=== PATIENT | female | born 1965 | race Caucasian/White ===

== ENCOUNTER 2018-03-30 15:26 | Emergency (ER) | payer BC ==
[2018-03-30 15:59] VITALS: BP 131/77
[2018-03-30] MEDS ORDERED: Dexamethasone TAB* 4 MG PO ONE (16:22)
--- NOTE | 2018-03-30 16:28 | UC ---
General HPI - HPI Summary HPI Summary: Patient states that on Saturday, 2 nights ago, she fell forward with outstretched arms landing on her carpeted stairs. She states that she was fine right after. She states that she went to bed. A short time later upon waking (a couple of hours later) she noted soreness to her upper back and was experiencing pain in her left arm. She describes the pain in her arm as a sensation like she had struck her funny bone. She states that she did not hit her head nor does she have any pain in her spine. She denies any weakness to her arms or legs. She denies any other injuries and offers no other complaints. She's been self treating with some Advil without relief. - History of Current Complaint Chief Complaint: UCBackPain Stated Complaint: BACK INJURY S/P FALL Time Seen by Provider: 03/30/18 16:06 Hx Obtained From: Patient Hx Last Menstrual Period: 03/17/18 Timing: Constant Pain Intensity: 4 Aggravating: looking down aggravates the mm on side on neck. Alleviating: nothing Associated Signs & Symptoms: Positive: Back Pain. Negative: Headache - Allergy/Home Medications Allergies/Adverse Reactions: Allergies Allergy/AdvReac Type Severity Reaction Status Date / Time codeine Allergy Rash Verified 03/30/18 15:59 Home Medications: Home Medications B/C 1 tab PO DAILY 03/30/18 [History Confirmed 03/30/18] Cranberry Conc/C/Bacill Coag [Cranberry Tablet] 1 each PO DAILY 03/30/18 [ History Confirmed 03/30/18] Escitalopram Oxalate [Lexapro 20 mg] 20 mg PO DAILY 03/30/18 [History Confirmed 03/30/18] Multivit-Min/Iron Fum/Folic AC [Multi Vitamin and Mineral] 1 tab PO DAILY [History Confirmed 03/30/18] Omeprazole CAP* [Prilosec CAP* 20 MG] 20 mg PO DAILY 03/30/18 [History Confirmed 03/30/18] PMH/Surg Hx/FS Hx/Imm Hx GI/ History: Gastroesophageal Reflux Psychological History: Anxiety - Surgical History Surgical History: Yes Surgery Procedure, Year, and Place: , gallbladder - Family History Known Family History: Positive: None - Social History Occupation: Employed Full-time Lives: With Family Alcohol Use: None Substance Use Type: None Smoking Status (MU): Never Smoked Tobacco - Immunization History Vaccination Up to Date: Yes Review of Systems Constitutional: Negative Skin: Negative Eyes: Negative ENT: Negative Respiratory: Negative Cardiovascular: Negative Gastrointestinal: Negative Genitourinary: Negative Motor: Negative Neurovascular: Negative Musculoskeletal: Other: - soreness upper back Neurological: Paresthesia - left arm Psychological: Negative Is Patient Immunocompromised?: No All Other Systems Reviewed And Are Negative: Yes Physical Exam Triage Information Reviewed: Yes Appearance: Well-Appearing Vital Signs: Initial Vital Signs Temp 98.2 F 03/30/18 15:51 Pulse 105 03/30/18 15:51 Resp 16 03/30/18 15:51 BP 131/77 03/30/18 15:51 Pulse Ox 97 03/30/18 15:51 Vital Signs Reviewed: Yes Eyes: Positive: Conjunctiva Clear, Other: - PERRL, EOMI. ENT: Positive: Pharynx normal, TMs normal. Negative: Nasal congestion, Nasal drainage Neck: Positive: Supple, Nontender, No Lymphadenopathy Respiratory: Positive: Chest non-tender, Lungs clear, Normal breath sounds Cardiovascular: Positive: RRR, No Murmur, Pulses Normal Abdomen Description: Positive: Nontender, No Organomegaly, Soft Bowel Sounds: Positive: Present Musculoskeletal: Positive: Other: - Head is normocephalic and atraumatic. Cervical, thoracic and lumbar spine are without gross deformity swelling or discoloration in the spinous processes are nontender to palpation. Range of motion is intact throughout. The trapezius muscle is diffusely tender to palpation. Flexion of the neck exacerbates discomfort to lateral aspects of her trapezius. She is 5 out of 5 strength and 2+ refluxes 4. No saddle anesthesia. She does have normal steady gait. Gross sensory and vascular is intact 4 as well; however, patient continues with the subjective discomfort of the left arm-describing it as having struck her funny bone. Both upper extremities are without gross bony deformity swelling or discoloration and are nontender palpation. Full range of motion is intact each. Both look sugars have full sensorivascular motor function as well and are nontender. Neurological: Positive: Alert Psychological: Positive: Age Appropriate Behavior Skin Exam: Normal Course/Dx - Course Course Of Treatment: Patient had no discomfort immediately after the fall. Her discomfort began 2 hours later plus I can elicit no bony tenderness, deformity or instability thus I have no concern for fracture. Her exam is consistent with trapezius muscle strain as well as left upper extremity radiculopathy. I think the radiculopathy is more of a brachial plexus irritation rather than a disc injury given patient's history and physical exam. Going to treat her with similar dose of Decadron here for the radiculopathy. At home and going to discontinue her prior anti-inflammatory and change her to prescription strength Aleve twice daily plus a muscle relaxer. We'll give her a note to remain out of work for up to 3 days and need for close follow-up with the primary care provider in 3 days for recheck with stressed. Patient also advised follow up sooner for any change or worsening. - Differential Dx - Multi-Symptom Provider Diagnoses: TRAPEZIUS MUSCLE STRAIN. RADICULOPATHY LEFT ARM. Discharge - Sign-Out/Discharge Documenting (check all that apply): Patient Departure All imaging exams completed and their final reports reviewed: No Studies - Discharge Plan Condition: Stable Disposition: HOME Prescriptions: Cyclobenzaprine TAB* [Flexeril 10 MG TAB*] 10 mg PO TID #10 tab Naproxen [Naprosyn 500 mg tab] 500 mg PO BID 5 Days #10 tablet Patient Education Materials: Muscle Strain (ED) Forms: *Work Release Referrals: No Primary Care Phys,NOPCP [Primary Care Provider] - Additional Instructions: DIAGNOSIS: TRAPEZIUS MUSCLE STRAIN. RADICULOPATHY LEFT ARM. FOLLOW UP DR LARA, YOUR PRIMARY DOCTOR AT [facility] IN 3 DAYS FOR A RECHECK OF SOONER IF WORSE. STOP ALL PRIOR MEDICATION. - Billing Disposition and Condition Condition: STABLE Disposition: Home
== END 2018-03-30 16:35 | disposition home or self-care (01) ==
LOC: UCCORT 15:26
DX: S16.1XXA Strain of muscle, fascia and tendon at neck level, initial encounter (principal); W19.XXXA Unspecified fall, initial encounter; Y92.9 Unspecified place or not applicable; M54.10 Radiculopathy, site unspecified; Z88.5 Allergy status to narcotic agent
CPT/HCPCS: 99202; G0463; J8540